=== PATIENT | male | born 1945 | race Two or more races ===

== ENCOUNTER → 2016-10-17 | Outpatient (CLI) | payer BC ==
--- NOTE | 2016-10-17 10:14 | RAD ---
Pelvis with both hips, 5 views, 10/17/2016: History: Right hip injury There is moderate narrowing at the hip joints with subchondral sclerosis and extensive marginal spurring bilaterally. No acute fracture or dislocation is identified. Mild spurring is present in the lower lumbar spine. IMPRESSION: 1. Moderately severe hypertrophic degenerative change at both hip joints. 2. No acute bony abnormality is detected.
== END | disposition home or self-care (01) ==
LOC: RAD 09:29
PROVIDERS: ATTEND Internal Medicine
DX: S79.912A Unspecified injury of left hip, initial encounter (principal); S79.911A Unspecified injury of right hip, initial encounter; X58.XXXA Exposure to other specified factors, initial encounter; Y93.89 Activity, other specified; Y92.89 Other specified places as the place of occurrence of the external cause; Y99.8 Other external cause status
CPT/HCPCS: 73521

== ENCOUNTER → 2016-10-25 | Outpatient (CLI) | payer BC, MEDICARE ==
--- NOTE | 2016-10-25 09:36 | RAD ---
CT of the head without contrast, 10/25/2016: History: Fall, head trauma The ventricles are within normal limits in size. There is a caval septum pellucidum which is a normal variant. There is no shift of the midline structures. There is no evidence of acute intracranial hemorrhage or mass effect. Minimal bilateral deep white matter lucencies are noted compatible with chronic ischemic change. No abnormal extra-axial fluid collection or mass is seen. IMPRESSION: 1. Minimal deep white matter lucencies compatible with chronic ischemic change. 2. No acute intracranial abnormality is detected. PQRS Compliance Statement: One or more of the following individualized dose reduction techniques were utilized for this examination: 1. Automated exposure control 2. Adjustment of the mA and/or kV according to patient size 3. Use of iterative reconstruction technique
== END | disposition home or self-care (01) ==
LOC: CT 07:36
PROVIDERS: ATTEND Internal Medicine
DX: S09.90XA Unspecified injury of head, initial encounter (principal); W19.XXXA Unspecified fall, initial encounter; Y93.89 Activity, other specified; Y92.89 Other specified places as the place of occurrence of the external cause; Y99.8 Other external cause status
CPT/HCPCS: 70450

== ENCOUNTER → 2018-05-03 | Outpatient (CLI) | payer BC ==
--- NOTE | 2018-05-03 13:54 | RAD ---
Examination: CT of the abdomen pelvis without contrast HISTORY: History of right flank pain COMPARISON: None available technique: Axial CT images of the abdomen pelvis were performed without contrast. Coronal and sagittal reformats are performed Exposure: One or more of the following individualized dose reduction techniques were utilized for this examination: 1. Automated exposure control 2. Adjustment of the mA and/or kV according to patient size 3. Use of iterative reconstruction technique FINDINGS: Minimal bibasilar lung atelectasis. No evidence of free air identified in the abdomen. The evaluation of the solid organs is limited due to lack of IV contrast. The evaluation of bowel is limited due to lack of oral contrast. The visualized noncontrasted liver, adrenals grossly appears unremarkable. Multiple calcified granulomas identified in the spleen. There is a 1.2 cm calcified gallstone identified within the gallbladder. The stomach is mildly distended. The visualized pancreas grossly appears unremarkable.. The small bowel is nondilated. The appendix is normal. Feces and gas noted in the colon. There is a cystic structure identified in the left kidney measuring 1.1 cm identified to characterize. The urinary bladder is minimally distended. There is a faint stranding identified about the urinary bladder with minimal thickening of the urinary bladder wall. Moderate to severe degenerative changes thoracolumbar spine. Faint sclerotic densities identified in the bilateral femoral heads could be secondary to degeneration of avascular necrosis. Small fat-containing bilateral inguinal hernias. IMPRESSION: 1. No acute intrarenal collecting system calculi or hydronephrosis. 2. Faint fat stranding identified about the urinary bladder with minimal thickened appearance the urinary bladder wall, nonspecific could be due to nondistention or cystitis. Correlate with urine analysis. Cystoscopic evaluation would be useful. 3. 1.1 cm cystic structure identified in the left kidney could be a cyst or cystic lesion difficult to characterize without contrast. 4. Cholelithiasis. 5. Minimal sclerotic densities identified in the bilateral femoral heads probably sclerosis due to degeneration or avascular necrosis. Electronically signed by: Toby Vidal MD (05/03/2018 1:51 PM) [facility]-[id number]
== END | disposition home or self-care (01) ==
LOC: CT 15:11
PROVIDERS: ATTEND Internal Medicine
DX: N20.0 Calculus of kidney (principal); Q61.9 Cystic kidney disease, unspecified; K80.20 Calculus of gallbladder without cholecystitis without obstruction; M85.851 Other specified disorders of bone density and structure, right thigh
CPT/HCPCS: 74176

== ENCOUNTER → 2020-07-08 | Outpatient (CLI) | payer BC ==
[~2020-07-08] MED LIST: AMLO2.5T5 PO; BUPIVACAINE MPF 0.5% 10 ML VIAL. INT ART ONE; IOHEXOL 300 MG/ML 50 ML VIAL. INT ART ONE; LIDOCAINE 1% Multi-Dose 20 ML VIAL. ID ONE; methylPREDNISolone ACETATE 40 MG/ML VIAL. INT ART ONE
--- NOTE | 2020-07-11 08:56 | KCIC ---
EXAM: Fluoroscopically guided left hip joint injection of steroid and anesthetic INDICATION: Osteoarthritis, left hip pain COMPARISON: Hip radiograph 10/17/2016 TECHNIQUE/FINDINGS: The purpose of the procedure and risks including infection, bleeding, contrast reaction, and pain wer e discussed with the patient. Informed consent was obtained. A timeout was performed. After obtaining consent, the patient was placed supine on the fluoroscopy table with the left hip int ernally rotated. The skin overlying the left hip was marked, sterilized and draped. Superficial and deep soft tissues were anesthetized with 1% lidocaine. Utilizing fluoroscopic guidance, a 22-gauge 3.5" needle was advanced into the joint. Intraarticular position was confirmed with injection of a sm all amount of iodinated contrast. Subsequently, 5 mL of a solution containing the following items wa s instilled into the joint: 1 mL of 1% lidocaine, 4 mL of bupivacaine, and 80 mL Depo-Medrol (40 mg/m L). At the end of the procedure, the needle was removed. The overlying skin was cleansed and covered wit h a bandaid. The patient tolerated the procedure well and was free of immediate complications. Total fluoroscopic time: 34 seconds. One image acquired. IMPRESSION: Technically successful left hip injection of steroid and anesthetic. Electronically signed by: Pita Morelos MD (07/11/2020 8:54 AM) [id number]
== END | disposition home or self-care (01) ==
LOC: KCIC 09:55
PROVIDERS: ATTEND Orthopaedic Surgery
DX: M16.0 Bilateral primary osteoarthritis of hip (principal); Z79.899 Other long term (current) drug therapy
CPT/HCPCS: 20610; 77002; J1030; J3490; Q9967

== ENCOUNTER → 2020-07-15 | Outpatient (CLI) | payer BC ==
--- NOTE | 2020-07-15 15:15 | KCIC ---
PROCEDURE: Right hip steroid injection under fluoroscopic guidance INDICATION: Right hip osteoarthritis. CONTRAST: 2 cc Omnipaque 300 FINDINGS: The risks, benefits and alternatives to the procedure were discussed with the patient. A timeout was performed to confirm the patient's identity and laterality of the injection. Utilizing sterile technique, fluoroscopic guidance and local anesthesia with 1% lidocaine, the right hip joint was accessed utilizing a 22-gauge 3.5" spinal needle. A small amount contrast was used to c onfirm the intra-articular location of the needle tip. Subsequently, a mixture containing 2 cc bupiva criselda and 80 cc Depo-Medrol was injected. There were no immediate complications. Fluoroscopy time: 23 seconds Number of images obtained: 1 Impression: Technically successful right hip steroid injection under fluoroscopic guidance. Electronically signed by: CARL AMADOR MD (07/15/2020 3:12 PM) [id number]
== END ==
LOC: KCIC 10:12
PROVIDERS: ATTEND Orthopaedic Surgery
DX: M16.11 Unilateral primary osteoarthritis, right hip (principal); M16.0 Bilateral primary osteoarthritis of hip; M25.551 Pain in right hip; Z79.899 Other long term (current) drug therapy
CPT/HCPCS: 20610; 77002; J1030; J3490; Q9967

== ENCOUNTER → 2020-10-04 | Outpatient (CLI) | payer BC ==
[~2020-10-04] MED LIST changes: +ATOR40TA59 PO; -BUPIVACAINE MPF 0.5% 10 ML VIAL. INT ART ONE; -IOHEXOL 300 MG/ML 50 ML VIAL. INT ART ONE; -LIDOCAINE 1% Multi-Dose 20 ML VIAL. ID ONE; +MELO15TA6 PO; +SILD100T PO; +TRAM50TA PO; -methylPREDNISolone ACETATE 40 MG/ML VIAL. INT ART ONE
[2020-10-04 09:14] LABS: BASO % 1 % (0-3); EOS # 0.1 x10^3/uL (0.0-0.7); EOS % 3 % (0-3); HEMATOCRIT 44.2 % (39.0-53.0); LYMPH # 1.3 x10^3/uL (1.0-4.8); LYMPH % 28 % (24-48); MEAN CORPUSCULAR HEMOGLOBIN 30 pg (25-35); MEAN CORPUSCULAR HGB CONC 34 g/dL (31-37); MEAN CORPUSCULAR VOLUME 89 fL (79-100); MONO # 0.4 x10^3/uL (0.0-1.1); MONO % 9 % (0-9); NEUT # 2.8 x10^3/uL (1.8-7.7); NEUT % 60 % (31-73); PLATELET COUNT 221 x10^3/uL (140-400); RED CELL DISTRIBUTION WIDTH 13.7 % (11.5-14.5); WHITE BLOOD COUNT 4.7 x10^3/uL (4.0-11.0)
[2020-10-04 09:22] LABS: PROTHROMBIN TIME PATIENT 12.3 SEC (11.7-14.0)
[2020-10-04 09:27] LABS: ALBUMIN 4.4 g/dL (3.4-5.0); CALCIUM 8.9 mg/dL (8.5-10.1); CREATININE 0.7 mg/dL (0.7-1.3); GFR 109.6; POTASSIUM 4.3 mmol/L (3.5-5.1)
[2020-10-05 00:12] LABS: HEMOGLOBIN A1C 5.7 % (4.8-5.6)
--- NOTE | 2020-10-05 08:33 | RAD ---
EXAM: PA and Lateral Views of the Chest DATE: 10/04/2020 12:29 PM INDICATION: Reason: HX HYPERTENSION PREOP EVAL FOR JOINT REPLACEMENT, SURGERY 10/19 HIP / Spl. Instruc tions: / History: COMPARISON: No Prior FINDINGS: The heart is not enlarged. Mediastinal and hilar contours are normal. No focal parenchymal airspace opacity. No pleural effusion or pneumothorax. Multilevel degenerative changes of the thoracic spine with flowing bridging anterior endplate osteoph ytes which may be seen with DISH. IMPRESSION: 1. No radiographic evidence for acute cardiopulmonary process. 2. Multilevel degenerative changes of the thoracic spine with flowing bridging anterior endplate ost eophytes which may be seen with DISH. Electronically signed by: Juan Francisco Davis MD (10/05/2020 8:31 AM) [id number]
== END ==
LOC: SURGPAT 12:34
PROVIDERS: ATTEND Orthopaedic Surgery
DX: Z01.818 Encounter for other preprocedural examination (principal); M16.12 Unilateral primary osteoarthritis, left hip; I10 Essential (primary) hypertension; M47.814 Spondylosis without myelopathy or radiculopathy, thoracic region; M25.78 Osteophyte, vertebrae
CPT/HCPCS: 36415; 71046; 80048; 82040; 82306; 83036; 85025; 85610; 85651; 85730; 87641

== ENCOUNTER → 2020-10-15 | Outpatient (CLI) | payer BC ==
[~2020-10-15] MED LIST changes: +WARF-31 PO
[2020-10-15 10:45] VITALS: BP 160/81
== END ==
LOC: LAB 11:39
PROVIDERS: ATTEND Orthopaedic Surgery
DX: Z01.812 Encounter for preprocedural laboratory examination (principal); M16.12 Unilateral primary osteoarthritis, left hip; Z20.822 Contact with and (suspected) exposure to COVID-19
CPT/HCPCS: U0003; U0005

== ENCOUNTER 2020-10-19 06:03 | Observation (INO) | payer BC ==
[2020-10-06 12:52] VITALS: BP 160/81
[2020-10-15 10:45] VITALS: BP 160/81
[2020-10-19] VITALS (11 sets, daily range): BP systolic 95–174; BP diastolic 60–81
[~2020-10-19] VITALS: Ht 172.7 cm; Wt 102.5 kg
[~2020-10-19 06:03] MED LIST changes: +HYDROmorphone 2 MG/ML VIAL IVP PRN; +IV RINGERS,LACTATED 1000ML 1,000 ML IV SCH; +MORPHINE SULFATE 2 MG/ML VIAL. IVP PRN; +MORPHINE SULFATE 5 MG, KETOROLAC 30MG VIAL 30 MG, ROPIVacaine 0.5% PF 60 ML, EPINEPHrin... INT ART ONE; +PROCHLORPERAZINE 10 MG/2 ML VIAL. IVP PRN; +TRANEXAMIC ACID in NS IVPB 50 ML INJ ONE; -WARF-31 PO; +fentaNYL PF VIAL 100 MCG/2 ML VIAL IVP PRN
[2020-10-19] MEDS ORDERED: MELOXICAM 7.5 MG TABLET PO ONE (06:05)
[2020-10-19] MEDS ORDERED: ACETAMINOPHEN 500 MG TABLET PO ONE (06:06)
[2020-10-19] MEDS ORDERED: GABAPENTIN 300 MG CAPSULE. PO ONE (06:06)
[2020-10-19] MEDS ORDERED: WARF-31 PO (06:22)
[2020-10-19 06:47] LABS: PROTHROMBIN TIME PATIENT 12.6 SEC (11.7-14.0)
[2020-10-19] MEDS ORDERED: SEVOFLURANE > 120 MINUTES. IH ONE ×2 (06:51→10:07)
[2020-10-19] MEDS ORDERED: ROCURONIUM 50 MG/5 ML VIAL. ONE (06:51)
[2020-10-19] MEDS ORDERED: PROPOFOL 10 MG/ML (20ML) VIAL. IV ONE (06:55)
[2020-10-19] MEDS ORDERED: LIDOCAINE 2% PF 5 ML VIAL. ONE (06:55)
[2020-10-19] MEDS ORDERED: DEXAMETHASONE SOD PHOS 4 MG/ML VIAL ONE (06:55)
[2020-10-19] MEDS ORDERED: ONDANSETRON PF 4 MG/2 ML VIAL. ONE (06:55)
[2020-10-19] MEDS ORDERED: fentaNYL PF VIAL 100 MCG/2 ML VIAL ONE (07:38)
[2020-10-19] MEDS ORDERED: VANCOMYCIN 1 GM VIAL. ONE (07:38)
[2020-10-19] MEDS ORDERED: TRANEXAMIC ACID 1,000 MG/10 ML VIAL. ONE (07:54)
[2020-10-19] MEDS ORDERED: TRANEXAMIC ACID in NS IVPB 50 ML ONE ×2 (07:57→07:58)
[2020-10-19] MEDS ORDERED: TRANEXAMIC ACID in NS IVPB 0 ML ONE (07:57)
[2020-10-19] MEDS ORDERED: MELOXICAM 7.5 MG TABLET PO PRN (08:00)
[2020-10-19] MEDS ORDERED: GABAPENTIN 300 MG CAPSULE. PO PRN (08:00)
[2020-10-19] MEDS ORDERED: ACETAMINOPHEN 500 MG TABLET PO PRN (08:00)
[2020-10-19] MEDS ORDERED: TRANEXAMIC ACID in NS IVPB 50 ML INJ ONE (08:00)
[2020-10-19] MEDS ORDERED: HYDROmorphone 2 MG/ML VIAL ONE (08:50)
[2020-10-19] MEDS ORDERED: SEVOFLURANE 61 TO 120 MINUTES. IH ONE (08:56)
[2020-10-19] MEDS ORDERED: PHENYLEPHRINE in 0.9% NACL PF 1 MG/10 ML SYRINGE. IV ONE (09:45)
--- NOTE | 2020-10-19 09:55 | HP ---
ADMIT DATE: 10/19/2020 PREOPERATIVE HISTORY AND PHYSICAL CHIEF COMPLAINT: Followup of bilateral hip pain, left much worse than right. HISTORY OF PRESENT ILLNESS: The patient is a 74-year-old male who continues to have left hip pain, much more so than the right. It bothers him, worse with activity and particularly walking up and down slopes and he is increasingly limited in his activities of daily living. PAST MEDICAL HISTORY: Significant for hyperlipidemia, hypertension, erectile dysfunction, osteoarthritis, bilateral hips. PAST SURGICAL HISTORY: He denies past surgical history. FAMILY HISTORY: No pertinent family history. SOCIAL HISTORY: Denies smoking or drug use. Occasional alcohol use socially. MEDICATIONS: List is reviewed. ALLERGIES: He has no known drug allergies. REVIEW OF SYSTEMS: Denies any recent fever, chills, chest pain, shortness of breath, recent illness, constitutional symptoms of any type, only significant for the ongoing left more so than right hip and groin pain. PHYSICAL EXAMINATION: VITAL SIGNS: Per admission sheet. HEENT: Atraumatic, normocephalic. HEART: Regular rate and rhythm. Lungs: Clear to auscultation bilaterally. ABDOMEN: Benign. EXTREMITIES: On examination, he has decreased range of motion of both hips, the left more severely than the right and he has pain in the groin and has already decreased extremes of range of motion, a on attempts of testing his motion, his pelvis tilts to avoid the pain. He has normal motion, alignment, stability, bilateral knees and ankles. NEUROLOGIC: Gait is antalgic. IMAGING: X-rays show degenerative narrowing of [id number] of both hips. IMPRESSION: Degenerative bilateral hips and left hip pain more than right. TREATMENT PLAN: I previously covered with him in clinic the nonoperative versus operative options of a cane in the opposite hand and other symptomatic management versus operative total hip arthroplasty and the inherent risks of potentially infection, nerve or blood vessel damage, leg length inequality, instability, premature wear or loosening, medical or other anesthetic complications among others. All his questions were answered. He wished to proceed with surgical evaluation and treatment for left total hip arthroplasty with [facility] observation to follow. MERARI/JASBIR/CAM DR: Arianna TID: [id number]
[2020-10-19] MEDS ORDERED: DEXTROSE 50% 25 GM / 50ML DISP.SYRIN. IV PRN (10:45)
[2020-10-19] MEDS ORDERED: CALCIUM CARBONATE 500 MG TAB.CHEW PO PRN (10:45)
[2020-10-19] MEDS ORDERED: fentaNYL PF VIAL 100 MCG/2 ML VIAL IVP PRN (10:45)
[2020-10-19] MEDS ORDERED: ZOLPIDEM 5 MG TABLET. PO PRN (10:45)
[2020-10-19] MEDS ORDERED: PROCHLORPERAZINE 5 MG TABLET. PO PRN (10:45)
[2020-10-19] MEDS ORDERED: 0.9 % SODIUM CHLORIDE 10 ML DISP.SYRIN. IV PRN (10:45)
[2020-10-19] MEDS ORDERED: diphenhydrAMINE 50 MG/ML VIAL IVP PRN (10:45)
[2020-10-19] MEDS ORDERED: MORPHINE SULFATE 2 MG/ML VIAL. IVP PRN (10:45)
--- NOTE | 2020-10-19 11:43 | NUR ---
Arrived to unit by bed from PACU. Alert and oriented x's 4. Left hip SHAYAN dressing intact with ice pack. Able to wiggle toes, warm touch and pedal pulses + bilaterally. MATTHEW/SCD on right and JH on left foot. IVF's intact and infusing. O2 at 2l per n/c. Oriented to room and controls. Side rails up x's 2 with call light in reach. at bedside. Cont. monitor.
[2020-10-19] MEDS: ONDANSETRON PF 4 MG/2 ML VIAL. IVP SCH ×2 (12:00→17:23)
[2020-10-19] MEDS: amLODIPine BESYLATE 5 MG TABLET PO SCH (12:00)
[2020-10-19] MEDS: ONDANSETRON ODT 4 MG TAB.RAPDIS. PO SCH ×2 (12:00→18:00)
[2020-10-19] MEDS ORDERED: WARFARIN 7.5 MG TABLET. PO ONE (16:00)
[2020-10-19] MEDS: FERROUS SULFATE 325 MG TABLET. PO SCH (17:23)
[2020-10-19] MEDS: oxyCODONE IR 5 MG TABLET PO PRN ×2 (17:28→21:36)
[2020-10-19] MEDS: ATORVASTATIN CALCIUM 40 MG TABLET. PO SCH (20:39)
--- NOTE | 2020-10-19 22:05 | PDOC4 ---
Operative Note Operative Note Date of surgery: 10/19/2020 Preoperative diagnosis: Degenerative joint disease left hip Postoperative diagnosis: Same Operative procedure: Left total hip arthroplasty with anterior approach Surgeon Cindy [employer] Supervisor: Stalin carnes Anesthesia: General Estimated blood loss: 250 cc Complications: None Drains: None Operative indications: Please see my orthopedic clinic note and dictated history and physical for detailed operative indications and note that we covered risks benefits postoperative course of the procedure. All his questions were answered and he wishes to proceed with surgical evaluation and treatment having given informed consent Operative text: Patient was identified procedure verified patient placed in the supine position on the Randolph fracture table after adequate amounts of general anesthesia were administered. All bony prominences were well-padded and left hip was prepped and draped in the standard sterile fashion. After timeout was performed patient procedure identified and verified an incision was made just distal to the anterior superior iliac spine running along the tensor fascia christiano for a distance of about 4 inches. Fascia was incised tensor fascia christiano was taken laterally and circumflex vessels were located and coagulated and the anterior capsule was exposed with the rectus femoris gently retracted medially along with the underlying fascia that was dissected free. Capsule was split in a T-shaped incision and superior aspect of the capsule was excised and further superior release was carried out with the hip in external rotation. Hip was returned to 40 degrees external rotation and a napkin ring cut was made with an Avenir [place] broach for reference napkin ring was removed and femoral head was removed and sized. Reaming was carried out from a size 51 to a size 57 with a size 58 Biomet G7 acetabular shell was placed in proper version under fluoroscopic guidance and no screw fixation was needed due to a excellent scratch fit. A 40 mm vitamin E liner was impacted into place. Femur was brought into maximum external rotation extension and adduction and release was carried out at the 11 o'clock position to free up the femur and retractors were placed medially and above the greater trochanter for maximum femoral exposure box osteotome was used along with the rattail rasp and successive size broaching up to a size 6 which provided excellent stability and fit within the canal. Calcar reaming was carried out and trial fitting with a -+7 40 mm head to reproduce leg length and offset appropriately under fluoroscopic guidance. Trial components were removed and a size 6 standard offset collared Avenir stem was impacted into place with a +7 ceramic 40 mm head. Excellent stability and range of motion were noted and leg length reproduced as much as possible according to measurements from the contralateral side. Thorough irrigation carried out with dilute Betadine solution and then washed further with normal saline solution and pulse lavage. Intra-articular mixture was injected subperiosteally throughout the joint capsule and subcutaneous areas and 1 g vancomycin sprinkled throughout the joint capsule area. Fascia was closed with #1 PDS strata fix suture in a running fashion subcutaneous closure with buried Vicryl skin closure with subcuticular Monocryl and a sam dressing was applied. Patient was returned to recovery room in stable condition having tolerated the procedure well. Stalin larios assist was present for the procedure and assisted in the patient positioning prepping draping retraction closure and dressings DEION GOLDSTEIN MD October 19, 2020 22:05
[2020-10-19] MEDS: IV NORMAL SALINE 1000ML BAG 1,000 ML IV SCH (22:15)
[2020-10-20] MEDS: oxyCODONE IR 5 MG TABLET PO PRN ×4 (02:18→20:37)
[2020-10-20 02:23] VITALS: BP 130/73
[2020-10-20] MEDS: ONDANSETRON ODT 4 MG TAB.RAPDIS. PO SCH ×2 (05:22)
[2020-10-20] MEDS: ONDANSETRON PF 4 MG/2 ML VIAL. IVP SCH ×2 (05:22)
[2020-10-20] MEDS: traMADol 50 MG TABLET PO SCH ×4 (05:22→23:37)
[2020-10-20 05:35] VITALS: BP 104/54
[2020-10-20] MEDS ORDERED: GABAPENTIN 100 MG CAPSULE. PO SCH (06:00)
[2020-10-20] MEDS ORDERED: MAGNESIUM HYDROXIDE 2,400 MG/30 ML ORAL.SUSP. PO PRN (06:00)
[2020-10-20 07:50] LABS: PROTHROMBIN TIME PATIENT 14.6 SEC (11.7-14.0)
[2020-10-20 08:13] LABS: HEMOGLOBIN 11.8 g/dL (13.0-17.5)
[2020-10-20] MEDS: MELOXICAM 7.5 MG TABLET PO SCH (08:20)
[2020-10-20] MEDS: SENNOSIDES/DOCUSATE 8.6/50MG TABLET. PO SCH (08:20)
[2020-10-20] MEDS: FERROUS SULFATE 325 MG TABLET. PO SCH ×2 (08:20→16:56)
[2020-10-20] MEDS: MULTIVITAMIN with MINERAL TABLET. PO SCH (08:20)
[2020-10-20] MEDS: ACETAMINOPHEN 500 MG TABLET PO SCH ×3 (08:20→20:36)
--- NOTE | 2020-10-20 10:17 | NUR ---
Pharmacy Warfarin Dosing Note S:Pharmacy consulted to assist with anticoagulation therapy started 10/19/20 with target INR: 1.6 - 2.5 O:MARQUEZCARL BAR is a 74 year old M with SOPHIA LABS: Last INR: 1.2 Last HGB: 11.8 Last HCT: 35 Last PLT: Last dose of 7.5 mg given on 10/19/20 at 1723 Previous Regimen: Vitamin K given: Drug Interaction Changes: Ongoing Drug Interactions: A:INR of 1.2 is below desired range. Target range for this patient is: 1.6 - 2.5 P: Warfarin dose: 5 mg Today at 1600 Bridge Therapy: None Next INR due 10/21/20. Pharmacy anticoagulation service will continue to follow. DAQUAN KRUSE RPH, 10/20/20 1014
[2020-10-20] MEDS: IV NORMAL SALINE 1000ML BAG 1,000 ML IV SCH (10:45)
[2020-10-20] MEDS ORDERED: ONDANSETRON PF 4 MG/2 ML VIAL. IVP PRN (12:00)
[2020-10-20] MEDS ORDERED: ONDANSETRON ODT 4 MG TAB.RAPDIS. PO PRN (12:00)
[2020-10-20 12:20] VITALS: BP 94/59
[2020-10-20] MEDS: amLODIPine BESYLATE 5 MG TABLET PO SCH (12:39)
--- NOTE | 2020-10-20 12:51 | PDOC ---
PROGRESS NOTES Date of Service DATE: 10/20/20 TIME: 12:48 Subjective Subjective Problems overnight: Hip feels much better than before surgery. No other complaints doing well Objective Vital Signs Vital Signs Date Time Temp Pulse Resp B/P (MAP) Pulse Ox O2 Delivery O2 Flow Rate FiO2 10/20/20 12:39 82 94/59 10/20/20 12:37 Room Air 10/20/20 05:52 18 97 10/20/20 05:35 99.4 99.4 10/19/20 16:45 2.0 Physical Exam Hip dressing clean dry intact leg lengths equal distal neurovascular status intact Labs Laboratory Tests Test 10/19/20 06:25 10/20/20 06:40 Prothrombin Time 12.6 SEC (11.7-14.0) 14.6 SEC (11.7-14.0) Prothromb Time International Ratio 1.0 (0.8-1.1) 1.2 (0.8-1.1) Activated Partial Thromboplast Time 32 SEC (24-38) Hemoglobin 11.8 g/dL (13.0-17.5) Hematocrit 35.0 % (39.0-53.0) Mean Corpuscular Hemoglobin Concent 34 g/dL (31-37) Laboratory Tests Test 10/20/20 06:40 Hemoglobin 11.8 g/dL (13.0-17.5) Hematocrit 35.0 % (39.0-53.0) Mean Corpuscular Hemoglobin Concent 34 g/dL (31-37) Prothrombin Time 14.6 SEC (11.7-14.0) Prothromb Time International Ratio 1.2 (0.8-1.1) Imaging Intra-Op fluoroscopy shows excellent reproduction of leg length and component placement Assessment Assessment POD#1 right total hip arthroplasty Plan Plan of Care Continue mobilize weightbearing as tolerated Warfarin anticoagulation per pharmacy Likely home health on discharge Justicifation of Admission Dx: Justifications for Admission: Justification of Admission Dx: N/A DEION GOLDSTEIN MD October 20, 2020 12:51
--- NOTE | 2020-10-20 13:35 | NUR ---
SW following. Discussed with RN, pt from home with , room air, cardiac diet. Pt had surgery on 10/19/20. Pt would like home health upon discharge. Chito Ward RN met with pt to discuss home health. Pt has two walkers at home. SW will continue to follow.
[2020-10-20] MEDS ORDERED: WARFARIN 5 MG TABLET. PO ONE (16:00)
[2020-10-20] MEDS ORDERED: BISACODYL 10 MG SUPP.RECT. PR PRN (16:00)
[2020-10-20 18:00] VITALS: BP 94/58
[2020-10-20] MEDS: ATORVASTATIN CALCIUM 40 MG TABLET. PO SCH (20:36)
--- NOTE | 2020-10-20 20:50 | SNU/HH DC ---
DISCHARGE WITH HOME HEALTH DISCHARGE INFORMATION: Discharge Date: October 21, 2020 Final Diagnosis: Status post total hip arthroplasty Condition on Discharge: Stable CODE STATUS: Code Status: Full HOME HEALTH: Face to Face: I certify this patient is under my care and that I, or a nurse practitioner or physician's assistant to the ceo working with me, had a face to face encounter that meets the physician face to face encounter requirements with this patient on [10/20/20]. Medical Complications: S/P Joint Replacement Long Term For: Assess/Skilled Observatio RN For Eval/Treatment: Yes Physical Therapy For: Evalulation/Treatment Pt Meets Homebound Status: Limited distance walking POST DISCHARGE ORDERS: Activity Instructions for Disc: Progressive ambulation DIET AFTER DISCHARGE: Regular Wound/Incision Care: Ice to area for comfort, Do not change dressing (Maintain sam dressing unless saturated. Remove suction box at 1 week when it stops and cut tail of dressing and tape over to maintain seal) FOLLOW-UP: Follow up with: Dr. White or Nany 2 weeks postoperatively Warfarin Follow UP: [facility] to direct dosage and testing TREATMENT/EQUIPMENT ORDERS: Adaptive Equipment Issued: Front wheeled walker CERTIFICATION STATEMENT: Certification Statement: Certification Statement: Based on the above finding, I certify that this patient is confined to the home and needs intermittent detention care, physical therapy and/or speech therapy, or continues to need occupational therapy.~ This patient is under my care, and I have initiated the establishment of the plan of care.~ This patient will be followed by myself or a community physician who will periodically review the plan of care. Home Meds Reported Medications Warfarin Sodium (WARFARIN SODIUM) 5 Mg Tablet, 5 MG PO DAILY for thinner, #30 TAB 10/19/20 Meloxicam (MOBIC) 15 Mg Tablet, 15 MG PO DAILY for anti-inflammatory, TAB 10/04/20 Tramadol Hcl (TRAMADOL HCL) 50 Mg Tablet, 50 MG PO Q6HRS PRN for PAIN, TAB 10/04/20 Sildenafil Citrate (VIAGRA) 100 Mg Tablet, 100 MG PO ONCE PRN for ED, TAB 10/04/20 Atorvastatin Calcium (ATORVASTATIN CALCIUM) 40 Mg Tablet, 40 MG PO HS for FOR CHOLESTEROL, #30 TAB 0 Refills 10/04/20 Amlodipine Besylate (AMLODIPINE BESYLATE) 2.5 Mg Tablet, 5 MG PO DAILY for control bp, TAB 07/08/20 DEION WHITE MD October 20, 2020 20:50
[2020-10-21] MEDS: ACETAMINOPHEN 500 MG TABLET PO SCH ×3 (03:00→14:31)
[2020-10-21 05:43] VITALS: BP 126/71
[2020-10-21] MEDS: traMADol 50 MG TABLET PO SCH ×2 (06:03→12:16)
[2020-10-21] MEDS ORDERED: OXYC5CAP PO (07:55)
[2020-10-21] MEDS ORDERED: TRAM50TA PO (07:55)
[2020-10-21] MEDS: MULTIVITAMIN with MINERAL TABLET. PO SCH (08:28)
[2020-10-21] MEDS: FERROUS SULFATE 325 MG TABLET. PO SCH (08:28)
[2020-10-21] MEDS: SENNOSIDES/DOCUSATE 8.6/50MG TABLET. PO SCH (08:29)
[2020-10-21] MEDS: MELOXICAM 7.5 MG TABLET PO SCH (08:29)
[2020-10-21] MEDS: amLODIPine BESYLATE 5 MG TABLET PO SCH (08:31)
[2020-10-21] MEDS: oxyCODONE IR 5 MG TABLET PO PRN ×2 (10:00→14:31)
--- NOTE | 2020-10-21 10:24 | NUR ---
Pharmacy Warfarin Dosing Note S:Pharmacy consulted to assist with anticoagulation therapy started 10/19/20 with target INR: 1.6 - 2.5 O:CARL MARQUEZ is a 74 year old M with SOPHIA LABS: Last INR: 1.3 Last HGB: 11.8 Last HCT: 35 Last PLT: Last dose of 5 mg given on 10/20/20 at 1656 Previous Regimen: Vitamin K given: Drug Interaction Changes: Ongoing Drug Interactions: A:INR of 1.3 is below desired range. Target range for this patient is: 1.6 - 2.5 P: Warfarin dose: 5 mg Prior to Discharge Bridge Therapy: None Next INR due Sunday, September 27 with home health Pharmacy anticoagulation service will continue to follow. ARMINDA LYN [facility], 10/21/20 1024
[2020-10-21] MEDS: IV NORMAL SALINE 1000ML BAG 1,000 ML IV SCH (10:45)
[2020-10-21 11:33] LABS: HEMATOCRIT 32.1 % (39.0-53.0); HEMOGLOBIN 10.6 g/dL (13.0-17.5)
--- NOTE | 2020-10-21 11:50 | NUR ---
SW following. Discussed with RN, discharge order for home with home health. Chito Ward RN notified.
[2020-10-21] MEDS ORDERED: WARFARIN 5 MG TABLET. PO ONE (14:00)
[2020-10-21 14:40] VITALS: BP 120/73
--- NOTE | 2020-10-21 15:10 | NUR ---
Discharge instructions given with prescriptions. Answered questions and concerns. Verbalized understanding. Pt discharged home accompanied by spouse. Escorted out by w/c.
--- NOTE | 2020-10-21 18:15 | PATHOLOGY ---
[facility] Accession Number: [id number] . 01 Material submitted: . femur - FEMORAL HEAD. Modifiers: head, left . 01 Clinical history: . DEGENERATIVE JOINT DISEASE OSTEOARTHRITIS LEFT HIP ARTHROPLASTY ANTERIOR . 02 Diagnosis: Femoral head, anterior left hip arthroplasty: - Advanced degenerative arthritis. (JPM/db; 10/21/2020) LBQ 10/21/2020 1555 Local . 02 Electronically signed: . Hesham Dyer MD, Pathologist NPI- [id number] . 01 Gross description: . The specimen is received in formalin, labeled "Tommy Dobbs, femoral head". The source is further designated in the operative procedure as, "L hip". Received is a femoral head measuring 5.5 x 5.5 x 4.9 cm in greatest dimensions. The articular surface is smooth to irregular in contour with moderate eburnation identified. Osteophytic lipping is identified. Sectioning reveals yellow-jenkins cut surfaces with no grossly distinct nodules or lesions. The specimen is submitted representatively in cassette A1, following decalcification. ([facility]; 10/20/2020) QAC/QAC 10/20/2020 1033 Local . 02 Pathologist provided ICD-10: M16.12 . 02 CPT . 416144, [id number] Specimen Comment: A courtesy copy of this report has been sent to [phone], [phone] Specimen Comment: [id number] Specimen Comment: Report sent to / DR GRAY Performed at: 01 [facility] [address], [place], [place] [id number] MD Richard Barraza MD Phone: [phone] Performed at: 02 [facility] [address] [place], [place] [id number] MD Hesham Dyer MD Phone: [phone]
--- NOTE | 2020-10-23 08:09 | DS ---
DATE OF DISCHARGE: 10/21/2020 PRINCIPAL DIAGNOSIS: Degenerative joint disease, left hip. PROCEDURE: Left total hip arthroplasty, anterior. DISPOSITION: Home with home health. DISPOSITION MEDICATIONS: Include oxycodone 5 mg p.o. q.4 hours p.r.n. severe pain, tramadol 25 mg p.o. q.4 hours p.r.n. moderate pain, warfarin anticoagulation from [facility], resume preoperative medications. FOLLOWUP: Follow up with Dr. White in 2 weeks postoperatively. Maintain SHAYAN dressing, call if saturated. Avoid extremes of hip flexion, but otherwise weightbearing as tolerated. BRIEF DESCRIPTION OF HOSPITAL COURSE: The patient underwent an uncomplicated left total hip arthroplasty, was getting around well postoperatively and remained medically stable. He negotiated physical therapy well for ambulation and transfers and was discharged to home health in stable condition. MERARI/JOSE ARMANDO DR: Arianna TID: [id number]
== END 2020-10-21 15:10 | disposition home health service (06) ==
LOC: SURG 06:03 → 4 SOUTHEST 10:33
PROVIDERS: ADMIT Orthopaedic Surgery; ATTEND Orthopaedic Surgery
DX: M16.12 Unilateral primary osteoarthritis, left hip (principal); M16.11 Unilateral primary osteoarthritis, right hip; I10 Essential (primary) hypertension; E78.5 Hyperlipidemia, unspecified; N52.9 Male erectile dysfunction, unspecified; Z79.899 Other long term (current) drug therapy; Z79.01 Long term (current) use of anticoagulants
CPT/HCPCS: 27130; 36415; 76000; 85014; 85018; 85610; 85730; 86850; 86900; 86901; 88304; 88311; 96361; 96365; 96366; 96375; 97116; 97150; 97162; 97166; 97530; 97535; A4213; A4930; A6223; A6258; A6402; A6550; C1755; C1776; G0378; G0379; J0171; J0690; J1100; J1170; J1885; J2270; J2370; J2405; J2704; J2795; J3010; J3370; J7030; A4223; J3490

== ENCOUNTER → 2021-01-07 | Outpatient (CLI) | payer BC ==
[~2021-01-07] MED LIST changes: -HYDROmorphone 2 MG/ML VIAL IVP PRN; -IV RINGERS,LACTATED 1000ML 1,000 ML IV SCH; -MORPHINE SULFATE 2 MG/ML VIAL. IVP PRN; -MORPHINE SULFATE 5 MG, KETOROLAC 30MG VIAL 30 MG, ROPIVacaine 0.5% PF 60 ML, EPINEPHrin... INT ART ONE; +OXYC5CAP PO; -PROCHLORPERAZINE 10 MG/2 ML VIAL. IVP PRN; -TRANEXAMIC ACID in NS IVPB 50 ML INJ ONE; +WARF-31 PO; -fentaNYL PF VIAL 100 MCG/2 ML VIAL IVP PRN
--- NOTE | 2021-01-07 13:45 | RAD ---
EXAM: Left lower extremity venous Doppler sonogram. HISTORY: Pain and swelling. TECHNIQUE: Tong scale and color Doppler sonographic evaluation of the left lower extremity veins with spectral waveform analysis was performed. FINDINGS: There is normal color flow, normal compressibility and there are normal spectral waveforms in the common femoral, superficial femoral, popliteal, posterior tibial and greater saphenous veins. IMPRESSION: No Doppler evidence of lower extremity deep venous thrombosis. Electronically signed by: Hanh Nj MD (01/07/2021 1:42 PM) [id number]
== END ==
LOC: US 13:27
PROVIDERS: ATTEND Internal Medicine
DX: M25.552 Pain in left hip (principal); M25.452 Effusion, left hip
CPT/HCPCS: 93971

== ENCOUNTER → 2021-06-14 | Outpatient (CLI) | payer BC ==
[~2021-06-14] MED LIST changes: +FERR-36 PO
[2021-06-14 09:27] LABS: BASO % 1 % (0-3); EOS # 0.1 x10^3/uL (0.0-0.7); EOS % 1 % (0-3); HEMATOCRIT 43.8 % (39.0-53.0); HEMOGLOBIN 14.6 g/dL (13.0-17.5); LYMPH # 1.1 x10^3/uL (1.0-4.8); LYMPH % 21 % (24-48); MEAN CORPUSCULAR HEMOGLOBIN 28 pg (25-35); MEAN CORPUSCULAR HGB CONC 33 g/dL (31-37); MEAN CORPUSCULAR VOLUME 85 fL (79-100); MONO # 0.7 x10^3/uL (0.0-1.1); MONO % 13 % (0-9); NEUT # 3.4 x10^3/uL (1.8-7.7); NEUT % 65 % (31-73); PLATELET COUNT 188 x10^3/uL (140-400); RED BLOOD COUNT 5.17 x10^6/uL (4.30-5.70); RED CELL DISTRIBUTION WIDTH 15.1 % (11.5-14.5); WHITE BLOOD COUNT 5.2 x10^3/uL (4.0-11.0)
[2021-06-14 09:45] LABS: CALCIUM 8.6 mg/dL (8.5-10.1); CREATININE 0.8 mg/dL (0.7-1.3); GFR 93.7; POTASSIUM 3.7 mmol/L (3.5-5.1)
[2021-06-14 10:27] LABS: PROTHROMBIN TIME PATIENT 12.3 SEC (11.7-14.0)
[2021-06-15 00:07] LABS: HEMOGLOBIN A1C 5.7 % (4.8-5.6)
== END ==
LOC: SURGPAT 08:22
PROVIDERS: ATTEND Orthopaedic Surgery
DX: Z01.812 Encounter for preprocedural laboratory examination (principal); M16.11 Unilateral primary osteoarthritis, right hip; E55.9 Vitamin D deficiency, unspecified; D69.9 Hemorrhagic condition, unspecified; Z96.642 Presence of left artificial hip joint; Z79.1 Long term (current) use of non-steroidal anti-inflammatories (NSAID); Z79.899 Other long term (current) drug therapy
CPT/HCPCS: 36415; 80048; 82306; 83036; 85025; 85610; 85651; 85730; 87641

== ENCOUNTER 2021-07-04 06:22 | Observation (INO) | payer BC ==
[2021-06-14 08:48] VITALS: BP 184/94
[~2021-07-04] VITALS: Ht 172.7 cm; Wt 108.0 kg
[2021-07-04] VITALS (10 sets, daily range): BP systolic 131–171; BP diastolic 55–86
[~2021-07-04 06:22] MED LIST changes: +ACETAMINOPHEN 500 MG TABLET PO PRN; +GABAPENTIN 300 MG CAPSULE. PO PRN; +HYDROmorphone 2 MG/ML INJ. IVP PRN; +IV RINGERS,LACTATED 1000ML 1,000 ML IV SCH; +MELOXICAM 7.5 MG TABLET PO PRN; +MORPHINE SULFATE 2 MG/ML INJ. IVP PRN; +PROCHLORPERAZINE 10 MG/2 ML VIAL. IVP PRN; +TRANEXAMIC ACID 1,000 MG in IV NS 50ML -- 1ST BAG INJ ONE; +TV=62ml MORPHINE 5 MG, KETOROLAC 30 MG, ROPIV, EPI INT ART ONE; +fentaNYL PF VIAL 100 MCG/2 ML VIAL IVP PRN
[2021-07-04] MEDS ORDERED: TRANEXAMIC ACID in NS IVPB 100 ML ONE (07:11)
[2021-07-04] MEDS ORDERED: VANCOMYCIN 1 GM VIAL. ONE (07:11)
[2021-07-04] MEDS ORDERED: TRANEXAMIC ACID 1,000 MG in IV NS 50ML -- 2ND BAG INJ ONE (08:00)
[2021-07-04] MEDS ORDERED: FAMOTIDINE 20 MG/2 ML VIAL ONE (08:04)
[2021-07-04] MEDS ORDERED: LIDOCAINE 2% PF 5 ML VIAL. ONE (08:04)
[2021-07-04] MEDS ORDERED: MIDAZOLAM HCL/PF 2 MG/2 ML VIAL. ONE (08:04)
[2021-07-04] MEDS ORDERED: fentaNYL PF VIAL 100 MCG/2 ML VIAL ONE ×2 (08:04→11:25)
[2021-07-04] MEDS ORDERED: DEXAMETHASONE SOD PHOS 4 MG/ML VIAL ONE (08:04)
[2021-07-04] MEDS ORDERED: PROPOFOL 10 MG/ML (20ML) VIAL. IV ONE (08:04)
[2021-07-04] MEDS ORDERED: SUCCINYLCHOLINE 200 MG/10 ML VIAL. ONE (08:59)
[2021-07-04] MEDS ORDERED: HYDROmorphone 2 MG/ML INJ. ONE (09:31)
[2021-07-04] MEDS ORDERED: PHENYLEPHRINE in 0.9% NACL PF 1 MG/10 ML SYRINGE. IV ONE (09:39)
[2021-07-04] MEDS ORDERED: ePHEDrine PF IN SALINE 50 MG/10 ML SYRINGE. IV ONE (09:40)
[2021-07-04] MEDS ORDERED: ONDANSETRON PF 4 MG/2 ML VIAL. ONE (09:40)
[2021-07-04] MEDS ORDERED: SEVOFLURANE 61 TO 120 MINUTES. IH ONE (10:27)
--- NOTE | 2021-07-04 10:31 | PDOC4 ---
OPERATIVE NOTE Date: Date: Jul 04, 2021 Pre-Op Diagnosis: Severe degenerative joint disease right hip Post-Op Diagnosis: Same Procedure Performed: Right total hip arthroplasty Surgeon: Hernán Anesthesia Type: General Blood Loss: 300 cc Specimans Obtained: Femoral head Findings: Size 5 femur 127 degree neck angle with a -5 femoral head acetabular liner 54 mm with an elevated liner insert Complications: None BELLA MASON Jr., DO Jul 04, 2021 10:31
[2021-07-04] MEDS ORDERED: MORPHINE SULFATE 2 MG/ML INJ. IVP PRN (10:45)
[2021-07-04] MEDS ORDERED: CALCIUM CARBONATE 500 MG TAB.CHEW PO PRN (10:45)
[2021-07-04] MEDS ORDERED: 0.9 % SODIUM CHLORIDE 10 ML DISP.SYRIN. IV PRN (10:45)
[2021-07-04] MEDS ORDERED: diphenhydrAMINE 50 MG/ML VIAL IVP PRN (10:45)
[2021-07-04] MEDS ORDERED: ZOLPIDEM 5 MG TABLET. PO PRN (10:45)
[2021-07-04] MEDS ORDERED: DEXTROSE 50% 25 GM / 50ML DISP.SYRIN. IV PRN (10:45)
[2021-07-04] MEDS ORDERED: PROCHLORPERAZINE 5 MG TABLET. PO PRN (10:45)
[2021-07-04] MEDS: IV NORMAL SALINE 1000ML BAG 1,000 ML IV SCH (10:45)
[2021-07-04] MEDS ORDERED: METOCLOPRAMIDE HCL 10 MG/2 ML VIAL. IVP PRN (10:45)
[2021-07-04] MEDS ORDERED: fentaNYL PF VIAL 100 MCG/2 ML VIAL IVP PRN (10:45)
--- NOTE | 2021-07-04 11:13 | PREOP HP ---
DATE OF SERVICE: 07/04/2021 REASON FOR HOSPITALIZATION UPCOMING: Right hip severe DJD. BRIEF HISTORY: The patient is a 75-year-old male who is here today with complaints of severe right hip pain, which is worse with activity, increasing and progressing over the last few years, but over the last few months in particular. He has already had severe pain, which has not responded to conservative therapies. He already underwent a total hip arthroplasty in October of last year with Dr. White and did very well postoperatively as far as that left hip is concerned. Currently, no other issues other than his right hip pain. REVIEW OF SYSTEMS: Unremarkable. MEDICAL HISTORY: Hyperlipidemia, hypertension, erectile dysfunction. SURGICAL HISTORY: Left total hip arthroplasty on 10/19/2020. FAMILY HISTORY: No family history documented. SOCIAL HISTORY: Never a tobacco user, occasional alcohol use 2-4 times per month. MEDICATIONS: Amlodipine, atorvastatin, Viagra, Mobic, tramadol, meloxicam occasional as needed. MEDICATION ALLERGIES: No known drug allergies. PHYSICAL EXAMINATION: The patient is alert and oriented and is responsive to the appropriate questions. He is 68 inches tall, 238 pounds. His heart is of regular rate and rhythm. His abdominal sounds are remarkable and stable and no pain along the area of the abdominal region. All lung macdonald are clear to auscultation. No other abnormalities noted with examination other than with this hip, which does show 90 degrees of flexion only. There is no hip contracture, but 0 degrees of internal rotation, 15 of external rotation, 40 degrees of abduction. He does not have any atrophy of musculature, right versus left. Distal neurovascular status appears to be fully intact bilaterally. IMPRESSION: 1. Severe degenerative joint disease, right hip. 2. Medical history as listed. PLAN: At this time, we have gone over the risks, complications as well as benefits and expectations of surgery, postoperative protocol and followup. We will get this set up as soon as possible today after he is seen anesthesia and we will proceed appropriately. BRIDGET/KACI/LEIDA DR: BRIDGET/manuel TID: [id number]
[2021-07-04] MEDS: fentaNYL PF VIAL 100 MCG/2 ML VIAL IVP PRN ×2 (11:28→12:03)
--- NOTE | 2021-07-04 11:38 | RAD ---
EXAM: XR PELVIS 1-2V 07/04/2021 11:15 AM CLINICAL INDICATION: Postop COMPARISON: None FINDINGS: Single AP view of the pelvis There is new right total hip prosthesis in expected alignment . There is no periprosthetic fracture. A left total hip prosthesis is unchanged. There is expected po stoperative soft tissue gas in the right hip. IMPRESSION: Expected post surgical changes of right total hip arthroplasty. Electronically signed by: Pita Morelos MD (07/04/2021 11:35 AM) [id number]
[2021-07-04] MEDS: ONDANSETRON PF 4 MG/2 ML VIAL. IVP SCH ×2 (12:00→16:06)
[2021-07-04] MEDS: ONDANSETRON ODT 4 MG TAB.RAPDIS. PO SCH ×2 (12:00→16:06)
--- NOTE | 2021-07-04 13:23 | OP ---
DATE OF SURGERY: 07/04/2021 PREOPERATIVE DIAGNOSIS: Severe degenerative joint disease, right hip. POSTOPERATIVE DIAGNOSIS: Severe degenerative joint disease, right hip. PROCEDURE: Right total hip arthroplasty. SURGEON: Eloy Jim Jr, DO GRINDING WHEEL FACER: Stalin Rebolledo. ANESTHESIA: General. COMPLICATIONS: None. ESTIMATED BLOOD LOSS: 300 mL COMPONENTS: Size 5 femur with a -5 femoral head, a 54 mm shell with an elevated liner. DESCRIPTION OF PROCEDURE: The patient was taken to the operative suite, given a general anesthetic, placed in lateral decubitus position with the affected hip upright. The right hip was then prepped and draped in a sterile fashion. Incision was made through skin and subcutaneous tissues down through centered over the greater trochanteric region of the hip. This was carefully taken down to the iliotibial band. Superficial bleeding was coagulated using Bovie knife and the iliotibial band was split in line with the skin incision and retracted anteriorly and posteriorly. The inferior one-half of the gluteus medius and the gluteus minimus were removed from their insertion sites. This was retracted anteriorly to identify the capsule, which was opened up in an H fashion. After this was opened up, this was dislocated and 1 fingerbreadth above the lesser trochanter, the cut was made for the femoral neck. The portion of the neck and head were then placed on the back table, measured to be 51-52 possibly mm. After removal of the remainder of the labral tissue from the acetabulum, reaming began at a 48 mm and continued up to 54 mm, which was noted to be very good bleeding bone and good stability. The impactor was used to place the acetabular component, which was impacted and noted to be stable, but 2 screws were placed to be able to secure this further, both 25 mm in length. The trial poly was then placed, which was an elevated rim and then the dry box operator was used followed by the IM guide followed by broaching, which began at size 0 continued up to size 5, which filled the femoral canal. This was noted to be excellent stability at this point with a size 5, but a little bit tight due to his previous contractures. Therefore, a -5 was the most appropriate for length. The hip was then subsequently manually dislocated. The actual polyethylene was placed after the trial was removed. This was impacted and noted to be secured within the acetabular component. The femoral component was impacted, so this was very stable within the femoral canal and then sizing again, -5 mm was placed. This was impacted onto the femur and this was relocated, taken through full ranges and extreme ranges of range of motion, which is very stable. This was then bathed in iodine solution, which was then thoroughly irrigated and removed. The capsule was reapproximated using #2 Ethibond. The gluteus medius was reapproximated. The IT band was reapproximated loosely and then resecured with a Stratafix in a running fashion. The superficial tissue and skin was reapproximated. Sterile dressing was applied. The patient was then taken from the operative bed to the postoperative bed, taken to PACU in stable condition. JEZ/HEMALATHA DR: Cheryl TID: [id number]
[2021-07-04] MEDS: FERROUS SULFATE 325 MG TABLET. PO SCH (16:06)
[2021-07-04] MEDS ORDERED: KETOROLAC 30MG VIAL 30 MG, BUPIVACAINE MPF 0.25% 20 ML, EPINEPHrine 0.5 MG in TOTAL VOL... INT ART SCH (18:00)
[2021-07-05 03:00] VITALS: BP 120/74
[2021-07-05] MEDS: ONDANSETRON ODT 4 MG TAB.RAPDIS. PO SCH ×2 (05:47)
[2021-07-05] MEDS: ONDANSETRON PF 4 MG/2 ML VIAL. IVP SCH ×2 (05:47)
[2021-07-05] MEDS ORDERED: GABAPENTIN 100 MG CAPSULE. PO SCH (06:00)
[2021-07-05] MEDS ORDERED: MAGNESIUM HYDROXIDE 2,400 MG/30 ML ORAL.SUSP. PO PRN (06:00)
[2021-07-05 07:00] VITALS: BP 128/58
[2021-07-05] MEDS: IV NORMAL SALINE 1000ML BAG 1,000 ML IV SCH (07:50)
[2021-07-05] MEDS: FERROUS SULFATE 325 MG TABLET. PO SCH ×2 (08:17→15:30)
[2021-07-05] MEDS: ACETAMINOPHEN 500 MG TABLET PO SCH ×3 (08:17→20:36)
[2021-07-05] MEDS: MULTIVITAMIN with MINERAL TABLET. PO SCH (08:17)
[2021-07-05] MEDS: SENNOSIDES/DOCUSATE 8.6/50MG TABLET. PO SCH (08:17)
--- NOTE | 2021-07-05 09:23 | PDOC ---
Provider Note Date of Service: DATE: 07/05/21 TIME: 09:22 Provider Note Pt seen, consult dictated.#[id number]. Justifications for Admission Other Justification POOJA GRAY MD Jul 05, 2021 09:23
[2021-07-05] MEDS: oxyCODONE IR 5 MG TABLET PO PRN ×2 (09:42→15:33)
[2021-07-05 11:00] VITALS: BP 107/58
[2021-07-05] MEDS ORDERED: ONDANSETRON PF 4 MG/2 ML VIAL. IVP PRN (12:00)
[2021-07-05] MEDS ORDERED: ONDANSETRON ODT 4 MG TAB.RAPDIS. PO PRN (12:00)
[2021-07-05 15:00] VITALS: BP 121/53
[2021-07-05] MEDS ORDERED: BISACODYL 10 MG SUPP.RECT. PR PRN (16:00)
--- NOTE | 2021-07-05 17:32 | PATHOLOGY ---
[facility] Accession Number: [id number] . 01 Material submitted: . femur - RIGHT FEMORAL HEAD AND TISSUE. Modifiers: right, head . 01 Clinical history: . R TOTAL HIP ARTHROPLASTY . 02 Diagnosis: Femoral head, bone shavings and soft tissue, right total hip arthroplasty: - Advanced degenerative arthritis. (JPM:ezekiel; 07/05/2021) MBR 07/05/2021 1415 Local . 02 Electronically signed: . Hesham Dyer MD, Pathologist NPI- [id number] . 01 Gross description: . The specimen is received in formalin, labeled "Tommy Dobbs, right femoral head" and the specimen consists of a disfigured femoral head (5.1 x 5.1 x 4.8 cm) with an attached portion of femoral neck (1.1 cm in length by 4.5 cm in diameter) and minimal attached soft tissue. The articular surface is jenkins-brown, dusky, granular and displays a prominent area of eburnation (5.4 x 6.3 cm). Two areas of articular surface softening (0.7 x 0.5 cm and 0.9 x 0.4 cm) are identified. Osteophytic growths are present. Also received in the same container are numerous brown spongy bone shavings and a portion of fatty irregular and rubbery tissue (9.5 x 9.0 x 2.9 cm). Local Superintendent sections are submitted in A1-A2 following decalcification. ([facility]; 07/04/2021) DKA/DKA 07/05/2021 1414 Local . 02 Pathologist provided ICD-10: M16.11 . 02 CPT . 976055, [id number] Specimen Comment: A courtesy copy of this report has been sent to [phone] Specimen Comment: Report sent to Performed at: [address] [facility], [place] [id number] MD Richard Barraza MD Phone: [phone] Performed at: [address] [facility] [address] [place], [place] [id number] MD Hesham Dyer MD Phone: [phone]
--- NOTE | 2021-07-05 18:55 | PN ---
DATE: 07/05/2021 Postoperative day #1 for a right total hip arthroplasty. He has no significant swelling to the right lower extremity. He has no signs or symptoms of active drainage from the hip dressings. At this point, the distal neurovascular status is intact and his leg lengths are equal today when measuring today. He already tells me he notices a difference when he is ambulating as far as the height of that leg versus the other side, it appears equal to him and at this point, pain is very much under control. However, we are working on gait training at this point and getting from a bed to a chair and back. We will continue doing physical and occupational therapy. Continue with DVT prophylaxis and continue monitoring him overall. ALYSSIA DR: Cheryl TID: [id number]
[2021-07-05 19:00] VITALS: BP 118/52
[2021-07-05] MEDS ORDERED: ATORVASTATIN CALCIUM 40 MG TABLET. PO SCH (21:00)
[2021-07-05 23:00] VITALS: BP 128/56
--- NOTE | 2021-07-05 23:08 | CONS ---
DATE OF CONSULTATION: 07/05/2021 ATTENDING PHYSICIAN: Dr. Jim. REASON FOR ADMISSION TO THE HOSPITAL: Medical management postop. Patient underwent a right hip replacement. HISTORY OF PRESENT ILLNESS: The patient is a 75-year-old male. The patient was admitted yesterday electively on 07/04 for right hip total replacement for DJD. He had a left hip replacement done 8 months ago. He is doing fine. There is more pain in the right hip, so he has seen Orthopedics and is scheduled to have surgery. PAST MEDICAL HISTORY: Hypertension, hyperlipidemia, erectile dysfunction. PAST SURGICAL HISTORY: Left hip arthroplasty in 10/2020. FAMILY HISTORY: Unremarkable. SOCIAL HISTORY: Social alcohol. Denies smoking. MEDICATIONS: Amlodipine 5 mg, atorvastatin 10 mg, Mobic 7.5, tramadol, Viagra p.r.n. ALLERGIES: No known allergies. REVIEW OF SYMPTOMS: Denies any chest pain or shortness of breath. PHYSICAL EXAMINATION: GENERAL: Well-built, not in any distress. VITAL SIGNS: Today seen postop day #1. Temperature 98, pulse 87, respirations 18, blood pressure 138/58, 94% on room air. HEENT: Head is atraumatic. Pupils equal. Oral cavity, no congestion. NECK: Supple. Thyroid not enlarged. JVD not elevated. CHEST: Symmetrical. CARDIOVASCULAR: S1, S2. LUNGS: Clear. ABDOMEN: Soft. No mass palpable. EXTERNAL GENITALIA: No Deleon. RECTUM: Deferred. EXTREMITIES: No calf tenderness, no edema. Dressings right hip, did not examine. LABORATORY AND DIAGNOSTIC DATA: Preop chest x-rays, EKG, laboratory data was unremarkable. FINAL IMPRESSION: 1. Hypertension. 2. Hyperlipidemia. 3. DJD, right hip. The patient admitted electively for hip replacement. PLAN: At this time, the patient is doing well after surgery. Continue hypertensive medications and see how he does. Again, thank you, Dr. Jim for allowing me to participate. WILLIAM/ANITA/VIVIANA NASCIMENTO: WILLIAM/manuel TID: [id number]
[2021-07-06] MEDS: oxyCODONE IR 5 MG TABLET PO PRN (00:27)
[2021-07-06 03:00] VITALS: BP 135/70
[2021-07-06] MEDS: ACETAMINOPHEN 500 MG TABLET PO SCH ×2 (03:00→08:17)
[2021-07-06 07:00] VITALS: BP 127/58
[2021-07-06 07:07] LABS: HEMATOCRIT 36.6 % (39.0-53.0); HEMOGLOBIN 12.2 g/dL (13.0-17.5)
[2021-07-06] MEDS: IV NORMAL SALINE 1000ML BAG 1,000 ML IV SCH (07:57)
[2021-07-06] MEDS: SENNOSIDES/DOCUSATE 8.6/50MG TABLET. PO SCH (08:16)
[2021-07-06] MEDS: FERROUS SULFATE 325 MG TABLET. PO SCH (08:16)
[2021-07-06] MEDS: MULTIVITAMIN with MINERAL TABLET. PO SCH (08:16)
[2021-07-06 11:00] VITALS: BP 127/55
--- NOTE | 2021-07-06 11:02 | PDOC ---
PROGRESS NOTES Date of Service: DATE: 07/06/21 TIME: 11:01 Subjective Subjective feeling well want to go home Objective Objective Vital Signs Date Time Temp Pulse Resp B/P (MAP) Pulse Ox O2 Delivery O2 Flow Rate FiO2 07/06/21 08:17 64 127/58 07/06/21 07:37 Room Air 07/06/21 07:00 98.4 18 97 98.4 Intake and Output 07/06/21 07:00 Intake Total 550 ml Output Total 200 ml Balance 350 ml Intake Oral 550 ml Output Urine Total 200 ml # Voids 2 Physical Exam Abdomen: Soft Heart: Regular rate, Normal S1, Normal S2 Extremities: No clubbing General: Alert HEENT: Atraumatic Lungs: Clear to auscultation Neck: Supple Neuro: Normal speech Psych/Mental Status: Mental status NL Assessment Assessment FINAL IMPRESSION:POD #2 rt hip replacement 1. Hypertension. 2. Hyperlipidemia. 3. DJD, right hip. The patient admitted electively for hip replacement. PLAN: d/c home ASA for DVT prevention Tramadol for pain. BP good . home today. At this time, the patient is doing well after surgery. Continue hypertensive medications and see how he does. Comment Review of Relevant I have reviewed the following items yesi (where applicable) has been applied. Labs Laboratory Tests Test 07/06/21 06:15 Hemoglobin 12.2 g/dL (13.0-17.5) Hematocrit 36.6 % (39.0-53.0) Mean Corpuscular Hemoglobin Concent 33 g/dL (31-37) Medications Current Medications Atorvastatin Calcium (Lipitor) 40 mg HS PO Last administered on 07/05/21at 20:36; Start 07/05/21 at 21:00 Bisacodyl (Dulcolax Supp) 10 mg 1X PRN PRN [place] CONSTIPATION; Start 07/05/21 at 16:00; Stop 07/06/21 at 15:59 Ondansetron HCl (Zofran Odt) 4 mg PRN Q6HRS PRN PO Nausea/vomiting, 1st choice; Start 07/05/21 at 12:00 Ondansetron HCl (Zofran) 4 mg PRN Q6HRS PRN IVP Nausea/vomiting, 1st choice; Start 07/05/21 at 12:00 Vitals/I & O Vital Sign - Last 24 Hours 07/05/21 07/05/21 07/05/21 07/05/21 15:00 19:00 19:43 23:00 Temp 98.0 98.0 98.2 98.0 98.0 98.2 Pulse 60 66 73 Resp 18 18 16 B/P (MAP) 121/53 (75) 118/52 (74) 128/56 (80) Pulse Ox 95 93 94 O2 Delivery Room Air Room Air 07/06/21 07/06/21 07/06/21 07/06/21 03:00 07:00 07:37 08:17 Temp 97.9 98.4 97.9 98.4 Pulse 70 64 64 Resp 18 18 B/P (MAP) 135/70 (91) 127/58 (81) 127/58 Pulse Ox 94 97 O2 Delivery Room Air Room Air Intake and Output 07/05/21 07/05/21 07/06/21 15:00 23:00 07:00 Intake Total 250 ml 300 ml Output Total 200 ml Balance 250 ml 100 ml Justifications for Admission Other Justification POOJA GRAY MD Jul 06, 2021 11:02
--- NOTE | 2021-07-06 11:09 | SNU/HH DC ---
DISCHARGE WITH HOME HEALTH DISCHARGE INFORMATION: Discharge Date: Jul 06, 2021 Condition on Discharge: Stable CODE STATUS: Code Status: Full HOME HEALTH: Face to Face: I certify this patient is under my care and that I, or a nurse practitioner or physician's assistant public defender working with me, had a face to face encounter that meets the physician face to face encounter requirements with this patient on []. Medical Complications: S/P Joint Replacement Half-Way For: Other: (hip replacement) RN For Eval/Treatment: Yes Physical Therapy For: Evalulation/Treatment Occupational Therapy For: Evaluation/Treatment Pt Meets Homebound Status: Poor coordination w/ amb. POST DISCHARGE ORDERS: Activity Instructions for Disc: Activity as tolerated, Progressive ambulation Weight Bearing Status after Di: No restrictions Bathing Instructions: Shower-keep dressing dry, No Tub Bath until see DIET AFTER DISCHARGE: Regular Wound/Incision Care: Ice to area for comfort, Keep wound elevated, Do not change dressing CHECKS AFTER DISCHARGE: Checks after discharge: Check blood press - daily FOLLOW-UP: Follow up with: pcp in 1-2 weeks Follow Up With: f/u ortho TREATMENT/EQUIPMENT ORDERS: Adaptive Equipment Issued: None, Front wheeled walker CERTIFICATION STATEMENT: Certification Statement: Certification Statement: Based on the above finding, I certify that this patient is confined to the home and needs intermittent correction care, physical therapy and/or speech therapy, or continues to need occupational therapy.~ This patient is under my care, and I have initiated the establishment of the plan of care.~ This patient will be followed by myself or a community physician who will periodically review the plan of care. Home Meds Active Scripts Tramadol Hcl (TRAMADOL HCL) 50 Mg Tablet, 50 MG PO Q4HRS PRN for MODERATE PAIN 4-6, #40 TAB Prov:DEION GOLDSTEIN MD 10/21/20 Reported Medications Ferrous Sulfate (IRON) 325 Mg Tablet, 1 TAB PO DAILY for PRE OP for 30 Days, #30 TAB 0 Refills 06/14/21 Sildenafil Citrate (VIAGRA) 100 Mg Tablet, 100 MG PO ONCE PRN for ED, TAB 10/04/20 Atorvastatin Calcium (ATORVASTATIN CALCIUM) 40 Mg Tablet, 40 MG PO HS for FOR CHOLESTEROL, #30 TAB 0 Refills 10/04/20 Amlodipine Besylate (AMLODIPINE BESYLATE) 2.5 Mg Tablet, 5 MG PO DAILY for cont rol bp, TAB 07/08/20 Discontinued Reported Medications Meloxicam (MOBIC) 15 Mg Tablet, 15 MG PO DAILY for anti-inflammatory, TAB 10/04/20 POOJA GRAY MD Jul 06, 2021 11:09
--- NOTE | 2021-07-06 11:42 | NUR ---
Discharge Note: JOHN [facility] [place] Discharge instructions and discharge home medications reviewed with Patient and spouse and a copy given. All questions have been answered and understanding verbalized. The following instructions and handouts were given: information about activity, weight bearing status, medications, follow up appointment,SHAYAN dressing information. Discontinued lines and drains: IV line in right hand removed, catheter tip intact. Patient discharged to home with with home health with , wheelchair used for mobility to discharge vehicle.
--- NOTE | 2021-07-07 14:26 | PDOC ---
Provider Note Date of Service: DATE: 07/07/21 TIME: 14:25 Provider Note Discharge summary dictated.#[id number]. Justifications for Admission Other Justification POOJA GRAY MD Jul 07, 2021 14:26
--- NOTE | 2021-07-07 16:45 | DS ---
DATE OF DISCHARGE: 07/06/2021 REASON FOR ADMISSION TO THE HOSPITAL: Elective admission for right hip total arthroplasty by Dr. Jim. COMPLICATIONS NOTED: None. HOSPITAL COURSE: The patient is a 75-year-old male with history of bilateral hip osteoarthritis. He had a left hip replacement done 8 months ago and he is feeling better. Now, the pain is more on the right side and he was admitted for elective right hip replacement, underwent right hip replacement and he did well. No complications noted. Discharged home. DENA DR: WILLIAM/manuel TID: [id number]
== END 2021-07-06 11:42 | disposition home health service (06) ==
LOC: SURG 06:22 → INTOOBSV 10:36 → 4 NORTH 10:36
PROVIDERS: ADMIT Internal Medicine; ATTEND Internal Medicine
DX: M16.11 Unilateral primary osteoarthritis, right hip (principal); I10 Essential (primary) hypertension; E78.5 Hyperlipidemia, unspecified; N52.9 Male erectile dysfunction, unspecified; Z96.649 Presence of unspecified artificial hip joint; Z79.899 Other long term (current) drug therapy; Z98.890 Other specified postprocedural states
CPT/HCPCS: 27130; 36415; 72170; 82040; 85014; 85018; 86850; 86900; 86901; 88304; 88311; 96365; 96366; 97110; 97116; 97150; 97162; 97165; 97530; 97535; A4213; A4930; A6258; A6550; C1776; G0378; G0379; J0171; J0330; J0690; J1100; J1170; J1885; J2250; J2270; J2405; J2704; J2795; J3010; J3490; J2370; J3370